=== PATIENT | male | born 1960 | race Caucasian/White ===

== ENCOUNTER 2018-08-07 10:30 | Inpatient (IN) | payer OTHER ==
[~2018-08-07] VITALS: Ht 170.2 cm; Wt 86.7 kg
[2018-08-07 12:19] LABS: Eosinophils # (auto) 0 uL; Hemoglobin 9.2 g/dL (13.5-17.5); Lymphocytes # (auto) 0.7 uL
[2018-08-07 12:22] LABS: Basophils # (auto) 0 uL; Basophils % (auto) 0.3 % (0.0-2.0); Hematocrit 28.8 % (41.0-53.0); Lymphocytes % (auto) 6.2 % (10.0-50.0); Mean Corpuscular Hemoglobin 24.1 pg (28.0-32.0); Mean Corpuscular Hgb Conc. 32.1 g/dL (32.0-36.0); Mean Corpuscular Volume 74.8 fL (80.0-100.0); Monocytes # (auto) 0.9 uL; Monocytes % (auto) 7.3 % (0.0-12.0); Neutrophils # (auto) 10.5 uL; Neutrophils % (auto) 86.2 % (37.0-80.0); Platelet Count (auto) 368 10^3/uL (140-450); Red Blood Cells 3.85 10^6/uL (4.5-5.90); Red Cell Distribution Width 17.8 % (11.8-14.3); White Blood Cell 12.1 10^3/uL (4.4-10.8)
[2018-08-07] MEDS ORDERED: MORPHINE SULFATE 4 MG/ML SYR/VIAL IV PRN (12:30)
[2018-08-07] MEDS ORDERED: PROMETHAZINE HCL 25 MG/ML 1ML IV PRN (12:30)
[2018-08-07] MEDS ORDERED: ACETAMINOPHEN 500 MG TAB PO PRN (12:30)
[2018-08-07] MEDS ORDERED: HYDROcodone-ACET 5/325MG TAB PO PRN (12:30)
[2018-08-07] MEDS ORDERED: TEMAZEPAM 15 MG CAP PO PRN (12:30)
[2018-08-07] MEDS: cefTRIAXone 1GM/50ML D5W 50 ML IV SCH (12:41)
[2018-08-07] MEDS ORDERED: cefTRIAXone 1GM/50ML D5W 50 ML IV ONE (12:45)
[2018-08-07] MEDS: SODIUM CHLORIDE 0.9% 1,000 ML IV SCH (12:46)
[2018-08-07 12:52] LABS: BUN/Creatinine Ratio 16.2; Calcium 8.4 mg/dL (8.5-10.1); Potassium 4.1 mmol/L (3.5-5.1)
[2018-08-07 12:59] LABS: INR 0.98 (0.9-1.15)
[2018-08-07 14:59] LABS: Urine Bacteria NONE SEEN /hpf (None Seen); Urine Blood 3+ /uL (Negative); Urine WBC 30317 /hpf (0 - 3)
[2018-08-07 15:07] LABS: Urine Specific Gravity > 1.050 (1.001-1.035)
[2018-08-07 17:28] VITALS: BP 181/87
[2018-08-07 17:59] LABS: Hematocrit 26.3 % (41.0-53.0); Hemoglobin 8.3 g/dL (13.5-17.5)
[2018-08-07 18:26] VITALS: BP 159/79
[2018-08-07] MEDS ORDERED: LIDOCAINE 2% JELLY 11ml (GLYDO) UR ONE ×2 (18:45→19:30)
--- NOTE | 2018-08-07 19:00 | NUR ---
CBI CBI WAS ORDERED. CALLED CHARGE NURSE TO ASSIST. CHARGE WAS UNABLE TO PUT IN CBI. DR MURCIA UROLOGY WAS PAGED.
--- NOTE | 2018-08-07 19:30 | NUR ---
END OF SHIFT NOTE PATIENT IS LAYING IN BED WITH AT BEDSIDE. BED IS IN LOWEST LOCKED POSITION. CALL LIGHT IS WITHIN REACH. BUILDING RENTAL MANAGER IS AWARE OF CBI ISSUE. DR MURCIA ON HIS WAY. ENDORSED CARE TO NOC RN
--- NOTE | 2018-08-07 19:30 | NUR ---
Opening Shift Note Assumed care of patient, sleeping with at bedside. Dr. Zavala, Urologist, notified day nurse and stated he would be coming to insert F/C to initiate CBI. Patient's aware of Dr. Zavala's plans. Will continue to monitor for changes Q1hr and PRN.
--- NOTE | 2018-08-07 19:38 | NUR ---
ON TELEPHONE DR MURCIA CALLED AND VERBALIZED THAT HE WILL COME TO INSERT CBI. ALL SUPPLIES ARE AT BEDSIDE
[2018-08-07] MEDS ORDERED: LIDOCAINE 1% (LOCAL ANESTH.) PF 5ml SDV ONE (19:59)
[2018-08-07] MEDS ORDERED: HYDROmorphone HCL 2 MG/ML VL IM ONE (20:00)
--- NOTE | 2018-08-07 20:00 | NUR ---
Dr. Zavala at bedside for F/C insertion to initiate CBI. Dr. Zavala informed patient that if insertion of F/C is unsuccessful, he may have to undergo surgery. Patient verbalized understanding. Large amount of gross hematuria noted during procedure. Patient noted with facial grimacing. Dr. Zavala verbally ordered Dilaudid 1 mg IVP now. Patient medicated as ordered.
--- NOTE | 2018-08-07 21:00 | NUR ---
Consent prepared, patient transferred down to OR for Cystoscopy with clot evacuation and transurethral resection of bladder and tumor. Report given to OR NurseNajma.
[2018-08-07] MEDS ORDERED: CIPROFLOXACIN 400MG/200ML 200 ML IV ONE (21:21)
[2018-08-07] MEDS ORDERED: fentaNYL CITRATE 100 MCG/2 ML VL ONE ×2 (21:24→22:05)
[2018-08-07] MEDS ORDERED: MIDAZOLAM HCL 1MG/1ML-2 ML VIAL ONE ×3 (21:25→23:24)
[2018-08-07] MEDS ORDERED: PROPOFOL 10 MG/ML 20 ML IV ONE (21:26)
[2018-08-07 22:00] VITALS: BP 135/69
[2018-08-07] MEDS: FAMOTIDINE 20 MG TAB PO SCH (22:00)
[2018-08-07] MEDS ORDERED: ROCURONIUM 10MG/ML 10ML VIAL IV ONE (22:03)
[2018-08-07 23:35] VITALS: BP 154/81
[2018-08-07] MEDS: MIDAZOLAM DRIP 50 mg/50mL 50 ML IV SCH (23:40)
[2018-08-08] VITALS (46 sets, daily range): BP systolic 106–170; BP diastolic 58–91
[2018-08-08] MEDS ORDERED: HYDROmorphone HCL 2 MG/ML VL IV ONE (00:15)
[2018-08-08] MEDS ORDERED: HYDROmorphone HCL 2 MG/ML VL ONE (00:17)
[2018-08-08] MEDS ORDERED: fentaNYL Drip 2500mCg/250mlNS 250 ML IV SCH (00:44)
[2018-08-08] MEDS ORDERED: fentaNYL Drip 2500mCg/250mlNS 250 ML IV ONE (00:54)
[2018-08-08] MEDS ORDERED: SODIUM BICARBONATE 8.4 % INJ 50ML VIAL IV ONE (01:30)
[2018-08-08] MEDS: SODIUM CHLORIDE 0.9% 1,000 ML IV SCH ×3 (01:55→18:02)
[2018-08-08 02:39] LABS: Hemoglobin 10.3 g/dL (13.5-17.5)
[2018-08-08 02:41] LABS: Hematocrit 32.1 % (41.0-53.0)
--- NOTE | 2018-08-08 03:55 | NUR ---
PATIENT ADMITTED TO ROOM 108 PER BED FROM RECOVERY ROOM. PATIENT HAD A TRANSURETHRAL RESECTION OF BLADDER TUMOR AND EVACUATION OF CLOTS. [address] WAY STEELE WITH CBI GOING AT A SLOW TRICKLE. NO SIGN OF BLOOD IN URINE. PUPILS PINPOINT AND NOT REACTIVE. INITIALLY TRIED TO RAISE UP IN BED AND MOVE ALL EXTREMITIES. SEDATION INCREASED. LUNGS COARSE. SUCTIONED A SMALL AMOUNT OF CLEAR SECRETIONS. ORAL: CLEAR SECRETIONS. ALL PULSES PALPABLE. FEET ARE COOL. HEELS OFF BED. SCDS ON. RIDING THE VENTILATOR. PIP NORMAL. NSR WITHOUT ECTOPY. BLOOD PRESSURE STABLE.
--- NOTE | 2018-08-08 06:00 | NUR ---
PLACED AN OGT AND RECEIVED 60CC OF YELLOW DRNG. HOOKED THE OGT TO [facility]. RT HERE. REPORTED TO THEM THAT HE IS BITING ON HIS TUBE.
[2018-08-08] MEDS: MIDAZOLAM DRIP 50 mg/50mL 50 ML IV SCH (06:10)
--- NOTE | 2018-08-08 06:37 | NUR ---
SUCTIONED A MOTA PLUG FROM THE ETT.
--- NOTE | 2018-08-08 07:22 | NUR ---
SHIFT OPENING NOTE PATIENT ON MECHANICAL VENTILATOR, SEDATED WITH FENTANYL AND VERSED, PUPILS 3 ROUND, EQUAL AND REACTIVE TO LIGHT, POSITIVE COUGH AND GAG. HR SR 77, NO ECTOPY, ABDOMEN SOFT AND NONTENDER. STEELE TO CONTINUOUS BLADDER IRRIGATION, URINE CLEAR, BAG FREE OF KINKS AND HUNG BELOW BLADDER. SCD'S BILATERLLY TO LOWER EXTREMITIES, SKIN INTACT
--- NOTE | 2018-08-08 08:34 | NUR ---
DR. MURCIA PAGED AWAITING CALLBACK
--- NOTE | 2018-08-08 08:58 | NUR ---
DR. MURCIA AT BEDSIDE ORDERS RECEIVED
[2018-08-08] MEDS: FAMOTIDINE 20 MG TAB PO SCH ×2 (09:40→21:57)
[2018-08-08] MEDS: cefTRIAXone 1GM/50ML D5W 50 ML IV SCH (09:41)
--- NOTE | 2018-08-08 10:04 | NUR ---
AND FATHER IN LAW AT BEDSIDE UPDATED ON PATIENT STATUS. ALL QUESTIONS AND CONCERNS ADDRESSED AT THIS TIME
[2018-08-08] MEDS ORDERED: ALBUTEROL SULF 2.5 MG/0.5ML(0.5%) NEB SOLN NEB PRN (12:00)
[2018-08-08] MEDS ORDERED: IPRATROPIUM BROM 0.5 MG/2.5ML INH SOL NEB PRN (12:00)
[2018-08-08] MEDS ORDERED: IPRATROPIUM BROM 0.5 MG/2.5ML INH SOL ONE (12:01)
[2018-08-08] MEDS ORDERED: ALBUTEROL SULF 2.5 MG/0.5ML(0.5%) NEB SOLN ONE (12:01)
--- NOTE | 2018-08-08 12:05 | NUR ---
PATIENT EXTUBATED PLACED ON COOL MIST MASK. LUNGS COARSE. O2 SATURATION 95%
[2018-08-08 13:24] LABS: Hematocrit 35.2 % (41.0-53.0); Hemoglobin 11.1 g/dL (13.5-17.5)
--- NOTE | 2018-08-08 15:38 | NUR ---
NASAL CANNULA PATIENT PLACED ON 2LNC 02 SATURATION 97%
--- NOTE | 2018-08-08 16:26 | NUR ---
REFUSAL PATIENT REFUSING TO TURN IN BED AT THIS TIME OR RECEIVE A LINEN CHANGE. PATIENT EDUCATED ON SKIN INTEGRITY AND BED SORES THAT CAN OCCUR RAPIDLY. PATIENT STATES "I'LL MAKE SURE I'M MOVING". WILL CONTINUE TO EDUCATE
--- NOTE | 2018-08-08 18:15 | NUR ---
PT ASSESSED FOR PRN TX. PT DENIES SOB AT THIS TIME. TX IS NOT INDICATED. PT IS AWARE TO HAVE RT PAGED IF HE BECOMES SOB OR NEEDS TX. B/S CLEAR BUT DECREASED. HR 82 RR 20 98% ON 2 LPM VIA NC.
--- NOTE | 2018-08-08 19:25 | NUR ---
REPORT GIVEN TO EDIS KIMBLE TO ASSUME CARE
--- NOTE | 2018-08-08 19:52 | NUR ---
PATIENT ARRIVED HERE THIS AM FROM PACU/OR. EXTUBATED TODAY. ON 2LNP. SLEEPING AT THE MOMENT. CBI DISCONTINUED. F3 WAY STEELE IN PLACE. URINE IS A CLEAR YELLOW. NSR WITHOUT ECTOPY. VITAL SIGNS STABLE. DOWNGRADE ORDER TO TELEMETRY.
--- NOTE | 2018-08-08 20:52 | NUR ---
DENIES PAIN. URINE IS A CLEAR YELLOW PER STEELE. NO BLOOD AT TIP OF PENIS. PUSHING ON ABDOMEN: SOFT, NO PAIN. IVS SHOW NO REDNESS OR DRNG. LEFT HAND IS SWOLLEN. REFUSED DINNER. NOT HUNGRY. DRINKING CRANBERRY JUICE ON ICE. NSR WITHOUT ECTOPY. TAKEN OFF OXYGEN. O2 SAT DECREASED FROM 97 TO 93%. NO DYSPNEA. TRACY IN ROOM AND SHE IS AWARE OF HIS NEW ROOM ASSIGNMENT OF 276 A.
--- NOTE | 2018-08-08 21:07 | NUR ---
REPORT CALLED TO SHYANNE CM. WHEELCHAIR IN ROOM. WAITING FOR THE TELEMETRY BOX
--- NOTE | 2018-08-08 21:25 | NUR ---
PATIENT IN WHEELCHAIR WITH TELEMETRY BOX AND LEADS IN PLACE. PEMA, NEUROLOGY PHYSICIAN ASSISTANT TRANSFERING HIM TO [facility].
--- NOTE | 2018-08-08 21:30 | NUR ---
RECEIVED PATIENT FROM ICU PATIENT AND IN ROOM AT THIS TIME. RECEIVED REPORT PRIOR TO ARRIVAL. PATIENT APPEARS TO BE IN GOOD SPIRITS, SHOWING NO SIGN OF DISTRESS, SHORTNESS OF BREATH, AND PATIENT DENIES ANY PAIN AT THIS TIME. PATIENT EDUCATED ON PLAN OF CARE FOR THE NIGHT AND PATIENT VERBALIZED UNDERSTANDING. BED LOWERED, CALL LIGHT WITHIN REACH, AND PATIENT WILL BE ROUNDED ON EVERY HOUR AND NEEDED. PATIENT'S STEELE INSPECTED AND SHOWING NO BLEEDING OR DRAINAGE. STEELE IS DRAINING LIGHT YELLOW URINE WITH NO SIGNS OF CLOTS. WILL CONTINUE TO MONITOR.
[2018-08-09] MEDS: SODIUM CHLORIDE 0.9% 1,000 ML IV SCH ×2 (04:45→17:00)
[2018-08-09 05:21] VITALS: BP 142/67
[2018-08-09 05:59] LABS: Eosinophils # (auto) 0.1 uL; Hemoglobin 10.1 g/dL (13.5-17.5); Lymphocytes # (auto) 1.2 uL; Red Blood Cells 3.89 10^6/uL (4.5-5.90)
[2018-08-09 06:01] LABS: Basophils # (auto) 0 uL; Basophils % (auto) 0.3 % (0.0-2.0); Eosinophils % (auto) 0.4 % (0.0-7.0); Hematocrit 30.6 % (41.0-53.0); Lymphocytes % (auto) 7.7 % (10.0-50.0); Mean Corpuscular Hemoglobin 25.8 pg (28.0-32.0); Mean Corpuscular Hgb Conc. 32.8 g/dL (32.0-36.0); Mean Corpuscular Volume 78.7 fL (80.0-100.0); Monocytes # (auto) 1.6 uL; Monocytes % (auto) 10.2 % (0.0-12.0); Neutrophils # (auto) 12.8 uL; Neutrophils % (auto) 81.4 % (37.0-80.0); Platelet Count (auto) 222 10^3/uL (140-450); Red Cell Distribution Width 19.2 % (11.8-14.3); White Blood Cell 15.8 10^3/uL (4.4-10.8)
[2018-08-09 06:17] LABS: BUN/Creatinine Ratio 10.4; Calcium 8.1 mg/dL (8.5-10.1); Magnesium 2.2 mg/dL (1.6-2.6); Potassium 3.6 mmol/L (3.5-5.1)
--- NOTE | 2018-08-09 07:10 | NUR ---
OPENING SHIFT NOTE ASSUMED CARE OF PATIENT FROM BUS INSPECTOR RN TOI. PATIENT IS AWAKE AND ALERT X4. PATIENT HAS NO S/S OF DISTRESS/SOB OR PAIN. INSTRUCTED PATIENT ON POC, PATIENT VERBALIZED UNDERSTANDING. BED IS IN LOWEST POSITION WITH SIDE RAILS RAISED X2, BED WHEELS LOCKED, STEELE IS HANGING BELOW BLADDER AND IS DRAINING YELLOW URINE, AND CALL LIGHT IS WITHIN REACH. WILL CONTINUE TO MONITOR.
[2018-08-09 08:44] VITALS: BP 145/70
[2018-08-09] MEDS: FAMOTIDINE 20 MG TAB PO SCH ×2 (09:27→21:17)
[2018-08-09] MEDS: cefTRIAXone 1GM/50ML D5W 50 ML IV SCH (09:27)
--- NOTE | 2018-08-09 11:41 | NUR ---
Respiratory note: ASSESSED PT FOR PRN MEDNEB TX. HR 82, RR 16, POX 93% ON ROOM AIR. BREATH SOUNDS CLEAR THROUGHOUT. NO S/S OF RESPIRATORY DISTRESS. MEDNEB TX NOT INDICATED AT THIS TIME. WROTE RT NAME AND PAGER NUMBER ON WHITEBOARD, ADVISED PT TO CALL FOR RT IF FEELING SOB.
[2018-08-09 12:48] VITALS: BP 146/73
[2018-08-09] MEDS ORDERED: SODIUM CHLORIDE 0.9% 1,000 ML IV SCH (14:00)
--- NOTE | 2018-08-09 14:26 | NUR ---
SPOKE WITH MD BURNETT INFORMED PATIENT HAS NOT HAD A BM SINCE 08/06/18 AND INFORMED HER OF PATIENT'S CL LEVEL OF 112. IS AWARE AND ORDERED COLACE AND WANTS TO CONTINUE NS AT 60 ML/HR TO BE GIVEN. WILL FOLLOW THROUGH WITH ORDERS
[2018-08-09] MEDS ORDERED: DOCUSATE SOD 100 MG CAP PO PRN (14:30)
--- NOTE | 2018-08-09 16:00 | NUR ---
PT DENIES NEED FOR P.T. PT REPORTS THAT HE IS DOING WELL.
[2018-08-09 16:52] VITALS: BP 129/80
--- NOTE | 2018-08-09 18:35 | NUR ---
Respiratory note: NO PRN TX GIVEN AT THIS TIME, NOT INDICATED. PT AWAKE AND ALERT, VISITING WITH FAMILY. SPO2 94% ON R/A, HR 87, RR 18. BREATH SOUNDS CLEAR THROUGHOUT. NO SOB NOTED.
--- NOTE | 2018-08-09 19:01 | NUR ---
CLOSING SHIFT NOTE ENDORSED CARE TO UNIONMELT OPERATOR SHYANNE CM. PATIENT HAS NO S/S OF DISTRESS/SOB OR PAIN AT THIS TIME.
--- NOTE | 2018-08-09 20:00 | NUR ---
OPENING NOTE RECEIVED REPORT FROM DAYSHIFT RN. ASSUMING ROLE OF CARE OF PATIENT AT THIS TIME. PATIENT SHOWING NO SIGN OF DISTRESS, SHORTNESS OF BREATH, AND PATIENT DENIES ANY PAIN AT THIS TIME. PATIENT EDUCATED ON PLAN OF CARE FOR THE NIGHT AND PATIENT VERBALIZED UNDERSTANDING. BED LOWERED, CALL LIGHT WITHIN REACH, AND PATIENT WILL BE ROUNDED ON EVERY HOUR AND NEEDED.
[2018-08-09 22:26] VITALS: BP 146/75
--- NOTE | 2018-08-10 05:03 | NUR ---
IV removal from right hand IV DC'd with clean sterile technique, catheter fully intact. Pressure dressing applied to site. Patient tolerated well.
--- NOTE | 2018-08-10 05:21 | NUR ---
STEELE REMOVED PER MD ORDER. PATIENT TOLERATED WELL. PATIENT ABLE TO VOID BY SELF. WILL CONTINUE TO MONITOR.
[2018-08-10 05:42] VITALS: BP 149/73
[2018-08-10 05:45] LABS: Lymphocytes # (auto) 1.4 uL; Neutrophils # (auto) 9.6 uL; White Blood Cell 12.9 10^3/uL (4.4-10.8)
[2018-08-10 05:47] LABS: Basophils # (auto) 0.1 uL; Basophils % (auto) 0.5 % (0.0-2.0); Eosinophils # (auto) 0.3 uL; Hematocrit 30.6 % (41.0-53.0); Hemoglobin 10.2 g/dL (13.5-17.5); Lymphocytes % (auto) 11.2 % (10.0-50.0); Mean Corpuscular Hemoglobin 26.4 pg (28.0-32.0); Mean Corpuscular Hgb Conc. 33.2 g/dL (32.0-36.0); Mean Corpuscular Volume 79.4 fL (80.0-100.0); Monocytes # (auto) 1.5 uL; Monocytes % (auto) 11.8 % (0.0-12.0); Neutrophils % (auto) 74.5 % (37.0-80.0); Nucleated Red Blood Cells % 0.1 %; Platelet Count (auto) 239 10^3/uL (140-450); Red Blood Cells 3.86 10^6/uL (4.5-5.90); Red Cell Distribution Width 19.1 % (11.8-14.3)
[2018-08-10 06:04] LABS: Calcium 8.1 mg/dL (8.5-10.1); Potassium 3.5 mmol/L (3.5-5.1)
[2018-08-10 06:08] LABS: BUN/Creatinine Ratio 13.7
--- NOTE | 2018-08-10 07:20 | NUR ---
Opening Shift Note Assumed care of patient, awake and alert. No S/S of distress/SOB or pain. Instructed on POC and to call for assist PRN, will continue to monitor for changes Q1hr and PRN.
[2018-08-10] MEDS: SODIUM CHLORIDE 0.9% 1,000 ML IV SCH (08:39)
[2018-08-10 09:01] VITALS: BP 141/68
[2018-08-10] MEDS: FAMOTIDINE 20 MG TAB PO SCH (09:12)
[2018-08-10] MEDS: cefTRIAXone 1GM/50ML D5W 50 ML IV SCH (09:12)
--- NOTE | 2018-08-10 09:40 | NUR ---
Respiratory note: PT ASSESSED FOR PRN MEDNEB TX. NO RESPIRATORY DISTRESS NOTED. TX NOT INDICATED AT THIS TIME. SPO2 94% ON RA HR 76 RR 20 B/S CLEAR. PT AWARE TO HAVE RT PAGED IF THEY BECOME SOB.
--- NOTE | 2018-08-10 10:00 | NUR ---
Void Patient voided X 1 post Kinney removal.
[2018-08-10] MEDS ORDERED: CIPR-217 PO (12:29)
[2018-08-10 12:45] VITALS: BP 128/68
--- NOTE | 2018-08-10 14:15 | NUR ---
Discharge from Tele Discharge instructions given as ordered. Encourage to follow up with PMD as instructed. All questions and concerns addressed. Patient verbalized understanding. Medication reconciliation form completed and copy given to patient. HIV removed with catheter intact, pressure dressing applied. Telemetry unit returned to ICU. Patient taken to vehicle via wheelchair with all personal belongings, accompanied by staff and family member. No distress noted at time of departure.
== END 2018-08-10 14:13 | disposition home or self-care (01) | DRG 668 ==
LOC: ER 10:30 → OVERFLOW 12:34 → WEST WING 15:45 → ICU WEST 08-08 04:26 → TELE-WESTW 08-08 21:29
PROVIDERS: ADMIT Internal Medicine; ATTEND Internal Medicine
PROC: 0TBB8ZZ Excision of Bladder, Via Natural or Artificial Opening Endoscopic (ICD-10-PCS; 2018-08-07)
PROC: 30233N1 Transfusion of Nonautologous Red Blood Cells into Peripheral Vein, Percutaneous Approach (ICD-10-PCS; 2018-08-07)
PROC: 5A1935Z Respiratory Ventilation, Less than 24 Consecutive Hours (ICD-10-PCS; 2018-08-07)
PROC: 0TCB8ZZ Extirpation of Matter from Bladder, Via Natural or Artificial Opening Endoscopic (ICD-10-PCS; principal; 2018-08-07 21:25)
DX: R31.0 Gross hematuria (principal); J95.821 Acute postprocedural respiratory failure; D62 Acute posthemorrhagic anemia; E66.9 Obesity, unspecified; F12.90 Cannabis use, unspecified, uncomplicated; F17.210 Nicotine dependence, cigarettes, uncomplicated; I70.0 Atherosclerosis of aorta; K80.20 Calculus of gallbladder without cholecystitis without obstruction; N20.0 Calculus of kidney; R33.9 Retention of urine, unspecified; Y83.8 Other surgical procedures as the cause of abnormal reaction of the patient, or of later complication, without mention of misadventure at the time of the procedure; Y73.8 Miscellaneous gastroenterology and urology devices associated with adverse incidents, not elsewhere classified; Y92.234 Operating room of hospital as the place of occurrence of the external cause; Z87.442 Personal history of urinary calculi; Z68.29 Body mass index [BMI] 29.0-29.9, adult; Z79.899 Other long term (current) drug therapy; Z71.6 Tobacco abuse counseling
CPT/HCPCS: 36415; 36600; 71045; 74176; 76775; 80048; 80061; 81001; 82805; 83735; 84154; 85014; 85018; 85025; 85610; 85730; 86850; 86900; 86901; 86920; 87070; 87081; 87086; 87205; 94002; 94003; 94640; 96365; 96375; G0378; J0696; J2250; J2704

== ENCOUNTER 2018-09-30 06:58 | Inpatient (IN) | payer OTHER ==
[~2018-09-30] VITALS: Ht 170.2 cm; Wt 83.5 kg
[~2018-09-30 06:58] MED LIST: CIPR-217 PO
[2018-09-30 07:57] LABS: Basophils # (auto) 0.1 uL; Eosinophils # (auto) 0 uL; Lymphocytes # (auto) 1.1 uL; Monocytes # (auto) 2.9 uL
[2018-09-30 07:58] LABS: Urine Bacteria FEW /hpf (None Seen); Urine Blood 1+ /uL (Negative); Urine Mucus FEW (None Seen); Urine Specific Gravity 1.014 (1.001-1.035); Urine WBC 40 /hpf (0 - 3)
[2018-09-30 07:58] LABS: Basophils % (auto) 0.5 % (0.0-2.0); Eosinophils % (auto) 0.1 % (0.0-7.0); Hematocrit 38.9 % (41.0-53.0); Hemoglobin 12.5 g/dL (13.5-17.5); Mean Corpuscular Hgb Conc. 32.1 g/dL (32.0-36.0); Mean Corpuscular Volume 74.9 fL (80.0-100.0); Monocytes % (auto) 10.6 % (0.0-12.0); Neutrophils # (auto) 23.2 uL; Neutrophils % (auto) 84.8 % (37.0-80.0); Platelet Count (auto) 413 10^3/uL (140-450); Red Blood Cells 5.19 10^6/uL (4.5-5.90); Red Cell Distribution Width 19.2 % (11.8-14.3); White Blood Cell 27.4 10^3/uL (4.4-10.8)
[2018-09-30 08:17] LABS: Albumin 3.4 g/dL (3.4-5.0); Anion Gap 9 (5-15); Blood Urea Nitrogen 15 mg/dL (7-18); Calcium 8.8 mg/dL (8.5-10.1); Carbon Dioxide 26 mmol/L (21-32); Chloride 101 mmol/L (98-107); Glucose 146 mg/dL (74-106); Potassium 3.9 mmol/L (3.5-5.1); Sodium 136 mmol/L (136-145)
[2018-09-30 08:22] LABS: Alanine Aminotransferase 15 U/L (16-61); Alkaline Phosphatase 88 U/L (45-117); Aspartate Aminotransferase 6 U/L (15-37); Bilirubin, Total 0.6 mg/dL (0.2-1.0); GFR African American 91 mL/min; GFR Non-African American 75 mL/min; Total Protein 8.7 g/dL (6.4-8.2)
[2018-09-30] MEDS ORDERED: SODIUM CHLORIDE 0.9% 1,000 ML IV ONE (09:25)
[2018-09-30] MEDS ORDERED: cefTRIAXone 1GM/50ML D5W 50 ML IV ONE (09:30)
[2018-09-30] MEDS ORDERED: PROMETHAZINE HCL 25 MG/ML 1ML IV PRN (09:30)
[2018-09-30 10:12] LABS: Magnesium 2.2 mg/dL (1.6-2.6)
[2018-09-30 10:20] LABS: INR 1.07 (0.9-1.15); Partial Thromboplastin Time 25.4 sec (23.64-32.05)
[2018-09-30] MEDS ORDERED: MORPHINE SULF INJ 2 MG/ML SYRINGE 1ML IV ONE (10:30)
[2018-09-30] MEDS ORDERED: HYDROcodone-ACET 5/325MG TAB PO PRN (12:45)
[2018-09-30] MEDS ORDERED: NITROGLYCERIN 0.4 MG SL TAB SL PRN (12:45)
[2018-09-30] MEDS ORDERED: ACETAMINOPHEN 500 MG TAB PO PRN (12:45)
[2018-09-30] MEDS ORDERED: MORPHINE SULF INJ 2 MG/ML SYRINGE 1ML IV PRN ×2 (12:45)
[2018-09-30] MEDS ORDERED: ONDANSETRON HCL 4 MG/2 ML VIAL IV PRN (12:45)
[2018-09-30] MEDS: SODIUM CHLORIDE 0.9% 1,000 ML IV SCH ×2 (13:04→21:02)
[2018-09-30] MEDS: TAMSULOSIN HYDROCHLORIDE 0.4 MG CAP PO SCH (18:22)
[2018-09-30 19:30] VITALS: BP 123/69
--- NOTE | 2018-09-30 19:30 | NUR ---
[facility] admit from [facility] admitted to [facility] after SBAR received. Patient oriented to primary RN, unit, room, bed, and unit policies regarding patient care and visiting hours. Patient weighed by bedscale and encouraged to call if they need something. All questions and concerns addressed, patient verbalized understanding. Bed in lowest locked position, call light within reach, side rails up x2. Will continue to monitor Q1hr and PRN.
--- NOTE | 2018-09-30 20:10 | NUR ---
Rust Order for rust insertion. Informed patient that there was on order to insert rust, per patient, no one in ER had informed him. Per patient, he doesn't want to get rust inserted, educated patient. Patient continues to refuse rust and states he prefers to use urinal. Will continue care.
[2018-09-30 22:00] VITALS: BP 123/69
[2018-10-01] MEDS: SODIUM CHLORIDE 0.9% 1,000 ML IV SCH ×2 (05:20→16:15)
[2018-10-01 05:46] VITALS: BP 143/83
[2018-10-01 06:45] LABS: Hemoglobin 11.1 g/dL (13.5-17.5); Mean Corpuscular Hemoglobin 24.1 pg (28.0-32.0); Mean Corpuscular Hgb Conc. 32.1 g/dL (32.0-36.0); Platelet Count (auto) 371 10^3/uL (140-450)
[2018-10-01 06:48] LABS: Hematocrit 34.7 % (41.0-53.0); Red Blood Cells 4.63 10^6/uL (4.5-5.90); Red Cell Distribution Width 19.4 % (11.8-14.3); White Blood Cell 17.3 10^3/uL (4.4-10.8)
[2018-10-01 06:54] LABS: BUN/Creatinine Ratio 18.6; Calcium 8.3 mg/dL (8.5-10.1)
[2018-10-01 07:15] LABS: Basophils % (manual) 0 (0.0-2.0); Blast Cells 0; Eosinophils % (manual) 0 (0-7); Promyelocytes % 0; Reactive Lymphocytes 0
--- NOTE | 2018-10-01 07:50 | NUR ---
Opening Shift Note: Assumed care of patient, awake and alert. Patient laying in bed. No S/S of distress/SOB or pain. Bed in lowest locked position, side rails up x2, call light within reach. Patient instructed on POC and to call for assist PRN, will continue to monitor for changes Q1hr and PRN.
[2018-10-01 09:00] VITALS: BP 150/86
[2018-10-01] MEDS: cefTRIAXone 1GM/50ML D5W 50 ML IV SCH (09:25)
[2018-10-01] MEDS: FAMOTIDINE 20 MG TAB PO SCH (09:31)
--- NOTE | 2018-10-01 09:40 | NUR ---
IV removal IV DC'd with clean sterile technique, catheter fully intact. Pressure dressing applied to site. Patient tolerated well.
--- NOTE | 2018-10-01 09:45 | NUR ---
IV insertion IV access obtained, via clean sterile technique by inserting 20 gauge catheter at left forearm after 1 attempt. IV secured properly. No trauma to site. Patient tolerated well.
--- NOTE | 2018-10-01 10:00 | NUR ---
UROLOGY Dr Zavala at bedside for Urology consult, new orders received and followed through. Dr Zavala enforced the importance of needing a Urethral Coude Kinney catheter, patient verbalized understanding.
[2018-10-01 11:56] LABS: Band Neutrophils % (manual) 4; Lymphocytes % (manual) 5 (10.0-50.0); Metamyelocytes % 1; Monocytes % (manual) 10 (0-12); Myelocytes % 1
--- NOTE | 2018-10-01 11:57 | NUR ---
Attempted to place a 18F Coude catheter per order. Immediately met resistance at the tip of the penis, despite multiple attempts. Notified Dr Jeferson Zavala, verbalized understanding. Verbalized he will be at bedside shortly. Updated patient on plan of care, verbalized understanding.
--- NOTE | 2018-10-01 12:16 | NUR ---
UROLOGY Dr Jeferson Zavala at bedside, placed 18F Coude catheter, draining clear, yellow urine to gravity.
[2018-10-01 13:00] VITALS: BP 138/81
[2018-10-01 17:00] VITALS: BP 146/87
[2018-10-01] MEDS: TAMSULOSIN HYDROCHLORIDE 0.4 MG CAP PO SCH (18:34)
--- NOTE | 2018-10-01 19:16 | NUR ---
Care endorsed to SHYANNE Erickson, night nurse.
--- NOTE | 2018-10-01 19:50 | NUR ---
Opening Shift Note Assumed care of patient, awake and alert. No S/S of distress/SOB or pain. Instructed on POC and to call for assist PRN. Bed in lowest locked position, call light within reach, side rails up x2. Will continue to monitor for changes Q1hr and PRN.
[2018-10-01 21:00] VITALS: BP 139/66
[2018-10-02] MEDS: SODIUM CHLORIDE 0.9% 1,000 ML IV SCH ×3 (00:05→12:43)
[2018-10-02 05:00] VITALS: BP 137/76
--- NOTE | 2018-10-02 08:00 | NUR ---
Care assumed of patient, AM assessment complete, no signs of symptoms of acute distress noted, patient alert and oriented, denies pain or discomfort at this time, respirations equal and unlabored, breath sounds clear, bowel sounds active [id number], bilateral radial and pedal pulses palpable, rust catheter noted, draining clear yellow urine, will continue to monitor, call light within reach
[2018-10-02 09:00] VITALS: BP 146/85
[2018-10-02] MEDS: cefTRIAXone 1GM/50ML D5W 50 ML IV SCH (09:29)
[2018-10-02] MEDS: FAMOTIDINE 20 MG TAB PO SCH (09:29)
[2018-10-02 13:00] VITALS: BP 134/76
[2018-10-02 17:00] VITALS: BP 150/81
[2018-10-02] MEDS: TAMSULOSIN HYDROCHLORIDE 0.4 MG CAP PO SCH (17:20)
[2018-10-02 18:24] VITALS: BP 121/67
--- NOTE | 2018-10-02 20:21 | NUR ---
PATIENT GIVEN DISCHARGE INSTRUCTIONS. STEELE CATHETER CHANGED TO LEG BAG AND EXTRA STEELE BAG GIVEN FOR HOME USE. INSTRUCTIONS GIVEN ON HOW TO EMPTY STEELE BAG. PATIENT INSTRUCTED THAT HOME HEALTH IS ORDERED. PATIENT SAID "WHAT ARE THEY GOING TO DO" I AM GOING TO THE DOCTOR IN A WEEK. PATIENT CLEARLY REFUSED HOME HEALTH IN THE PRESENCE OF . PATIENT'S AWARE THAT SHE WILL FOLLOW UP ON FRIDAY WITH APPOINTMENTS TO PRIMARY CARE PHYSICIAN AND DR. AURORA MURCIA. PRESCRIPTION FOR AUGMENTIN.
--- NOTE | 2018-10-02 20:28 | NUR ---
PATIENT DISCHARGED VIA WHEELCHAIR ACCOMPANIED BY . PATIENT LEFT IN STABLE CONDITION.
== END 2018-10-02 20:30 | disposition home health service (06) | DRG 872 ==
LOC: ER 07:03 → OVERFLOW 07:04 → CENTRAL 19:35
PROVIDERS: ADMIT Nurse Practitioner Acute Care; ATTEND Internal Medicine
PROC: 0T7D7ZZ Dilation of Urethra, Via Natural or Artificial Opening (ICD-10-PCS; principal; 2018-10-01)
DX: A41.9 Sepsis, unspecified organism (principal); N12 Tubulo-interstitial nephritis, not specified as acute or chronic; C67.9 Malignant neoplasm of bladder, unspecified; K57.30 Diverticulosis of large intestine without perforation or abscess without bleeding; K40.20 Bilateral inguinal hernia, without obstruction or gangrene, not specified as recurrent; K80.20 Calculus of gallbladder without cholecystitis without obstruction; N20.0 Calculus of kidney; N35.911 Unspecified urethral stricture, male, meatal; Z85.51 Personal history of malignant neoplasm of bladder; Z87.442 Personal history of urinary calculi; Z87.891 Personal history of nicotine dependence; Z90.79 Acquired absence of other genital organ(s); R33.9 Retention of urine, unspecified
CPT/HCPCS: 36415; 71046; 74176; 80048; 80053; 81001; 83690; 83735; 84484; 85007; 85025; 85027; 85610; 85730; 87040; 87086; 87088; 87186; 96365; 96375; G0378; J0696